=== PATIENT | male | born 1975 | race Caucasian/White ===

== ENCOUNTER 2019-02-05 13:42 | Emergency (ER) | payer OTHER ==
[2019-02-05] MEDS ORDERED: Ketorolac 30 MG/ML SDV IM ONE (14:21)
[2019-02-05] MEDS ORDERED: Orphenadrine 100 MG Tab.ER PO ONE (14:21)
--- NOTE | 2019-02-05 14:28 | EDM.PDOC ---
ED HPI GENERAL MEDICAL PROBLEM - General Chief Complaint: Back Pain or Injury Stated Complaint: BACK PAIN Time Seen by Provider: 02/05/19 13:54 Source of Information: Reports: Patient, RN Notes Reviewed History Limitations: Reports: No Limitations - History of Present Illness INITIAL COMMENTS - FREE TEXT/NARRATIVE: Patient is a 43-year-old male who presents to the ED for the evaluation of lower back pain. The patient notes a chronic history of back problems with L5- S1 stenosis and degenerative disc disease. The patient states that on Tuesday he was doing some light maintenance on his car doing a lot of stooping and bending over, and he has had increased back pain since then. He takes Percocet 05/17/25 5 times daily for back pain. He sees a pain doctor in House by the name of Dr. Paredes, and sees Parul Arshad as a primary care provider. The patient notes that the pain is similar to the pain he always feels, however he feels there has been some more muscle spasms and he is having trouble sleeping at night as he cannot find a comfortable position. He states it feels as if someone stuffing a red hot poker into his back. He puts his pain at a 10 out of 10 today. He denies any loss of bowel or bladder or any new numbness or other issues. He states he has a pre-existing deficit of non-diabetic peripheral neuropathy. He says nothing is really help the pain, that all movement seems to aggravate the pain. Lower Back Pain Score (Numeric/FACES): 10 - Related Data Allergies Allergy/AdvReac Type Severity Reaction Status Date / Time No Known Allergies Allergy Verified 02/05/19 14:01 Home Meds: Home Meds Amitriptyline [Elavil] 25 mg PO DAILY 02/05/19 [History] Cyclobenzaprine [Flexeril] 10 mg PO TID PRN #30 tab 02/05/19 [Rx] hydrOXYzine HCl [hydrOXYzine] 50 mg PO DAILY 02/05/19 [History] oxyCODONE HCl/Acetaminophen [Percocet 10-325 mg Tablet] 2 tab PO Q4HR 02/05/19 [ History] predniSONE [Deltasone] 20 mg PO ASDIRECTED #15 tablet 02/05/19 [Rx] Past Medical History Musculoskeletal History: Reports: Back Pain, Chronic Social & Family History - Tobacco Use Smoking Status *Q: Unknown Ever Smoked ED ROS GENERAL - Review of Systems Review Of Systems: See Below Constitutional: Reports: No Symptoms HEENT: Reports: No Symptoms Respiratory: Reports: No Symptoms Cardiovascular: Reports: No Symptoms Endocrine: Reports: No Symptoms GI/Abdominal: Reports: No Symptoms : Reports: No Symptoms Musculoskeletal: Reports: Back Pain (lower back pain) Skin: Reports: Other (plaque psoiriasis) Neurological: Reports: Numbness (non-diabetic peripheral neuropathy), Pre- Existing Deficit (non-diabetic peripheral neuropathy). Denies: Tingling Psychiatric: Reports: No Symptoms Hematologic/Lymphatic: Reports: No Symptoms Immunologic: Reports: No Symptoms ED EXAM,LOWER BACK PAIN/INJURY - Physical Exam Exam: See Below Exam Limited By: No Limitations General Appearance: Alert, WD/WN, No Apparent Distress, Obese (morbidly obese) Head: Atraumatic, Normocephalic Neck: Normal Inspection, Supple, Non-Tender, Full Range of Motion Respiratory/Chest: No Respiratory Distress, Lungs Clear, Normal Breath Sounds, No Accessory Muscle Use, Chest Non-Tender Cardiovascular: Normal Peripheral Pulses, Regular Rate, Rhythm, No Murmur GI/Abdominal: Normal Bowel Sounds, Soft, Non-Tender, No Distention, No Mass Back Exam: Normal Inspection, Decreased Range of Motion (d/t pain) Neurological: Alert, Normal Mood/Affect, Normal Dorsiflexion, CN II-XII Intact, Normal Plantar Flexion, Normal Gait (shuffling, but he states this is normal for himself), Normal Reflexes, Oriented x 3 Psychiatric: Normal Affect, Normal Mood Skin Exam: Warm, Dry, Intact, Normal Color, Other (multiple plaque like lesions to lower extremities, patient states that he has psoriasis) Course - Vital Signs Last Recorded V/S: Last Vital Signs Temp 98.2 F 02/05/19 13:56 Pulse 94 02/05/19 13:56 Resp 18 02/05/19 13:56 BP 167/105 H 02/05/19 13:56 Pulse Ox 100 02/05/19 13:56 - Orders/Labs/Meds Meds: Medications Discontinued Medications Generic Name Dose Route Start Last Admin Trade Name Freq PRN Reason Stop Dose Admin Cyclobenzaprine HCl 10 mg 02/05/19 16:34 02/05/19 16:49 Flexeril PO 02/05/19 16:35 10 mg ONETIME ONE Administration Ketorolac Tromethamine 30 mg 02/05/19 14:21 02/05/19 14:29 Toradol IM 02/05/19 14:22 30 mg ONETIME ONE Administration Orphenadrine Citrate 100 mg 02/05/19 14:21 02/05/19 14:29 Norflex PO 02/05/19 14:22 100 mg ONETIME ONE Administration Oxycodone HCl 10 mg 02/05/19 16:04 02/05/19 16:11 Oxycodone PO 02/05/19 16:05 10 mg ONETIME ONE Administration - Re-Assessments/Exams Free Text/Narrative Re-Assessment/Exam: 02/05/19 14:29 Patient presents to the ED for evaluation of lower back pain. He notes that the pain is very similar to his pain that he feels normally, however it is more intense at this time. Have ordered 100 mg Norflex and 30 mg IM Toradol for initial pain relief. 02/05/19 15:19 The RN states that the patient told her that he feels flush and has a headache now. I did check his [employer] and he last got 140 tabs of percocet 10/325 on 2018 which appears to be a 28 day supply. He does not state that he has run out of his narcotic meds, and it calculates to 5 tabs/day, he should have enough to last until approx. February 14. I have provided him with a muscle relaxer, this should help the spasms. As he has a pain doctor, I do not feel it appropriate to give him narcotic pain medications, without discussing his case with his pain doctor. I will try to get in contact with her to see if she would be okay with him receiving further pain medications in the ED. 02/05/19 16:14 I have not heard back from Dr. Glaser's office, I have ordered 10mg Oxycodone from the ED today, as this is his normal medication at this time. I will discuss outpatient treatment options with him to include Flexeril 10mg TID PRN, possible PT and Heat/ ice therapy. I did write an outpatient MRI order for further evaluation, he is to f/u with Parul Arshad NP for results. Departure - Departure Time of Disposition: 16:49 Disposition: Home, Self-Care 01 Condition: Fair Clinical Impression: Lower back pain Qualifiers: Chronicity: chronic Back pain laterality: bilateral Sciatica presence: without sciatica Qualified Code(s): M54.5 - Low back pain - Discharge Information *PRESCRIPTION DRUG MONITORING PROGRAM REVIEWED*: No *COPY OF PRESCRIPTION DRUG MONITORING REPORT IN PATIENT SARA: No Prescriptions: Cyclobenzaprine [Flexeril] 10 mg PO TID PRN #30 tab PRN Reason: Spasms predniSONE [Deltasone] 20 mg PO ASDIRECTED #15 tablet Instructions: Back Injury Prevention, [id number], Chronic Back Pain, Easy-to- Read Referrals: Parul Arshad, [employer] [Primary Care Provider] - Forms: ED Department Discharge, ED Return to Work/School Form Additional Instructions: You have been evaluated in the ED for your lower back pain. Please use ice/heat as tolerated to the affected area. You have been provided with a prescription for Prednisone, a steroid, for inflammation relief. Please take as directed. Please take your Percocet 10/325 as previously prescribed for further pain relief. You have been provided with a prescription for Flexeril, a muscle relaxer, 10mg TID PRN for muscle spasms. You may find that OTC lidocaine pain patches such as Salonpas or IcyHot with lidocaine may provide further relief. Recommend that you seek possible PT referral from your PCP. You have been provided with an outpatient order for an MRI of your lumbar spine , Please follow up with Parul Arshad for results and further management. You may request a copy of the report be sent to your pain doctor in House as well. Our radiology dept. will call to schedule this appointment. Please return to ED if your symptoms should change or worsen.
[2019-02-05] MEDS ORDERED: oxyCODONE 5 MG Tab PO ONE (16:04)
[2019-02-05] MEDS ORDERED: Cyclobenzaprine 10 MG Tab PO ONE (16:34)
== END 2019-02-05 17:00 | disposition home or self-care (01) ==
LOC: JD.ED 13:42
DX: M54.5 Low back pain (principal); E66.01 Morbid (severe) obesity due to excess calories; Z79.899 Other long term (current) drug therapy
CPT/HCPCS: 96372; 99283; A9270; J1885

== ENCOUNTER 2019-05-06 13:04 | Emergency (ER) | payer OTHER ==
--- NOTE | 2019-05-06 13:56 | EDM.PDOC ---
ED HPI GENERAL MEDICAL PROBLEM - General Chief Complaint: Respiratory Problem Stated Complaint: COUGH AND HEAD CONGESTION Time Seen by Provider: 05/06/19 13:36 Source of Information: Reports: Patient History Limitations: Reports: No Limitations - History of Present Illness INITIAL COMMENTS - FREE TEXT/NARRATIVE: 43 year old male presents for evaluation and treatment of cough and congestion. Reports symptoms started about 3-4 days ago. Current symptoms include chills, ear pain, congestion, productive cough, nausea, vertigo, inner ear fullness and pain and shortness of breath. No fevers or chest pain. Reports he has been around people with similar symptoms. PCP is Parul Arshad. Duration: Day(s): (2) Headache Pain Score (Numeric/FACES): 8 - Related Data Allergies Allergy/AdvReac Type Severity Reaction Status Date / Time No Known Allergies Allergy Verified 05/06/19 13:22 Home Meds: Home Meds Amitriptyline [Elavil] 25 mg PO DAILY 02/05/19 [History] Cyclobenzaprine [Flexeril] 10 mg PO TID PRN #30 tab 02/05/19 [Rx] hydrOXYzine HCl [hydrOXYzine] 25 mg PO BID 02/05/19 [History] oxyCODONE HCl/Acetaminophen [Percocet 10-325 mg Tablet] 2 tab PO Q4HR 02/05/19 [ History] Amoxicillin/Clavulanate K [Augmentin 875-125 MG] 1 tab PO BID #20 tab 05/06/19 [ Rx] Past Medical History Musculoskeletal History: Reports: Back Pain, Chronic Social & Family History - Tobacco Use Smoking Status *Q: Never Smoker - Alcohol Use Days Per Week of Alcohol Use: 7 Number of Drinks Per Day: 2 Total Drinks Per Week: 14 - Recreational Drug Use Recreational Drug Use: No ED ROS GENERAL - Review of Systems Review Of Systems: See Below Constitutional: Reports: Chills. Denies: Fever HEENT: Reports: Ear Pain Respiratory: Reports: Shortness of Breath, Cough, Sputum Cardiovascular: Denies: Chest Pain GI/Abdominal: Reports: Nausea. Denies: Vomiting Neurological: Reports: Headache ED EXAM, GENERAL - Physical Exam Exam: See Below Exam Limited By: No Limitations General Appearance: Alert, WD/WN, No Apparent Distress, Obese Eye Exam: Bilateral Eye: Normal Inspection Ears: Normal External Exam, Normal Canal, Hearing Grossly Normal Ear Exam: Bilateral Ear: TM Red, TM Bulging Nose: Normal Inspection Throat/Mouth: Normal Inspection, Normal Lips, Normal Oropharynx, Normal Voice, No Airway Compromise Head: Sinus Tenderness Neck: Normal Inspection Respiratory/Chest: No Respiratory Distress, Lungs Clear, Normal Breath Sounds Cardiovascular: Normal Peripheral Pulses, No Murmur, Tachycardia GI/Abdominal: Normal Bowel Sounds, Soft, Non-Tender Neurological: Alert, Oriented Psychiatric: Normal Affect, Normal Mood Skin Exam: Warm, Dry, Normal Color Course - Vital Signs Last Recorded V/S: Last Vital Signs Temp 97.4 F 05/06/19 13:18 Pulse 108 H 05/06/19 13:18 Resp 22 H 05/06/19 13:18 BP 155/112 H 05/06/19 13:18 Pulse Ox 95 05/06/19 13:18 - Radiology Interpretation Free Text/Narrative:: chest xray shows no acute intrathoracic process. Formal radiology read pending. - Re-Assessments/Exams Free Text/Narrative Re-Assessment/Exam: 05/06/19 15:00 influenza is negative cxr is unremarkale. Will treat for sinusitis and otitis media. Discharge instructions as documented. Departure - Departure Time of Disposition: 15:02 Disposition: Home, Self-Care 01 Condition: Fair Clinical Impression: Sinusitis, Otitis media - Discharge Information *PRESCRIPTION DRUG MONITORING PROGRAM REVIEWED*: No *COPY OF PRESCRIPTION DRUG MONITORING REPORT IN PATIENT SARA: No Prescriptions: Amoxicillin/Clavulanate K [Augmentin 875-125 MG] 1 tab PO BID #20 tab Instructions: Otitis Media, Adult, [id number], Sinusitis, Adult, [id number] Referrals: Parul Arshad NP [Primary Care Provider] - Forms: ED Department Discharge, ED Return to Work/School Form Additional Instructions: Take the Augmentin as prescribed. 1 tab twice a day for 10 years. Take this medication with food. Recommend yogurt or probiotic to help reduce side effects of upset stomach, nausea and diarrhea. [id number] Tylenol or Motrin as needed for pain relief. Recommend a nasal spray such as Nasonex or Flonase to help reduce inflammation around your eustachian tubes. Follow-up with your primary care provider in 7-10 days for recheck of your symptoms. Make sure you are drinking plenty of fluids. Please return to the ER if your symptoms change or worsen.
--- NOTE | 2019-05-07 07:10 | CR ---
Chest: Two views of the chest were obtained. Comparison: No prior chest x-ray. Heart size and mediastinum are normal. Lungs are clear. Bony structures are unremarkable for the patient's age. Impression: 1. Nothing acute is seen on two-view chest x-ray. Diagnostic code #1
== END 2019-05-06 15:10 | disposition home or self-care (01) ==
LOC: JD.ED 13:04
DX: J32.9 Chronic sinusitis, unspecified (principal); H66.90 Otitis media, unspecified, unspecified ear; Z79.899 Other long term (current) drug therapy
CPT/HCPCS: 71046; 71046-26; 87804; 99283; 99283-25